=== PATIENT | female | born 1965 | race Caucasian/White ===

== ENCOUNTER 2016-04-02 16:15 | Emergency (ER) | payer OTHER ==
[~2016-04-02] VITALS: Ht 165.1 cm; Wt 77.3 kg
[~2016-04-02 16:15] MED LIST: ASPI-825 PO; ATOR10TA84 PO; GLIPIZIDE; GLUCOPHAGE; HCTZ; INSU100C3 SQ; LANTUS INSULIN; LISI-660 PO; METF500T4 PO; OMEP20 PO; SERT50TA12 PO
[2016-04-02 16:52] LABS: GLUCOSE,POINT OF CARE 367 MG/DL (70-110)
[2016-04-02] MEDS ORDERED: DIPHENOXYLATE/ATROP 2.5-0.025 MG TABLET PO ONE (18:30)
[2016-04-02] MEDS ORDERED: INSULIN REGULAR, HUMAN 100 UNITS/ML IVP ONE (18:30)
[2016-04-02] MEDS ORDERED: SODIUM CHLORIDE 0.9% 1,000 ML IV ONE (18:30)
[2016-04-02] MEDS ORDERED: ONDANSETRON HCL 4 MG/2 ML VIAL IVP ONE (18:30)
[2016-04-02 18:37] LABS: BASOPHILS % (AUTO) 0.2 % (0.0-2.0); EOSINOPHILS % (AUTO) 0.6 % (1.0-6.0); HEMOGLOBIN 11.2 g/dL (12.0-16.0); LYMPHOCYTES # (AUTO) 4.4 K/uL (1.0-4.8); LYMPHOCYTES % (AUTO) 30.4 % (22.0-44.0); MEAN CORPUSCULAR HEMOGLOBIN 27.7 pg (26.0-34.0); MEAN CORPUSCULAR HGB CONC 32.9 G/dL (31.0-37.0); MEAN CORPUSCULAR VOLUME 84 fL (80-100); MONOCYTES # (AUTO) 1.2 K/uL (0.1-1.0); MONOCYTES % (AUTO) 8.1 % (2.0-9.0); NEUTROPHILS # (AUTO) 8.8 K/uL (1.8-7.7); NEUTROPHILS % (AUTO) 60.7 % (40.0-70.0); PLATELET COUNT (AUTO) 283 K/uL (150-450); RED BLOOD CELL COUNT(AUTO) 4.04 MIL/uL (4.00-5.20); WHITE BLOOD COUNT (AUTO) 14.5 K/uL (4.5-11.0)
[2016-04-02 18:42] LABS: CALCIUM, TOTAL 9.3 mg/dL (8.8-10.5); CREATININE 1.12 mg/dL (0.60-1.30); POTASSIUM 3.5 mmol/L (3.5-5.1)
[2016-04-02 18:48] LABS: ALBUMIN 2.7 g/dL (3.4-5.0); BILIRUBIN,TOTAL 0.1 mg/dL (0.1-1.0); TOTAL PROTEIN, SERUM 7.4 g/dL (6.4-8.2)
[2016-04-02 19:15] VITALS: BP 137/67
[2016-04-02 20:06] LABS: GLUCOSE,POINT OF CARE 268 MG/DL (70-110)
== END 2016-04-02 21:05 | disposition home or self-care (01) ==
LOC: EMS 16:17
DX: K52.9 Noninfective gastroenteritis and colitis, unspecified (principal); E11.65 Type 2 diabetes mellitus with hyperglycemia; I10 Essential (primary) hypertension; Z79.4 Long term (current) use of insulin; Z79.82 Long term (current) use of aspirin
CPT/HCPCS: 36415; 80053; 82962; 85025; 96361; 96374; 96375; 99285; J1815; J2405; J7030

== ENCOUNTER 2016-06-07 19:14 | Emergency (ER) | payer OTHER | END 2016-06-07 20:30 | disposition left against medical advice (07) | LOC: EMS 19:18 | DX: J45.909 Unspecified asthma, uncomplicated (principal); Z53.21 Procedure and treatment not carried out due to patient leaving prior to being seen by health care provider ==

== ENCOUNTER 2016-11-03 21:30 | Emergency (ER) | payer OTHER ==
[~2016-11-03] VITALS: Ht 165.1 cm; Wt 122.3 kg
[2016-11-03 21:57] LABS: GLUCOSE,POINT OF CARE 331 MG/DL (70-110)
[2016-11-03] MEDS ORDERED: GLIP5 PO (22:00)
[2016-11-03] MEDS ORDERED: ALBU8HFA IH (22:00)
[2016-11-03] MEDS ORDERED: INSLAN SQ (22:00)
[2016-11-03] MEDS ORDERED: INSNOV SQ (22:00)
[2016-11-03 22:21] LABS: BASOPHILS % (AUTO) 0.1 % (0.0-2.0); EOSINOPHILS % (AUTO) 0.9 % (1.0-6.0); HEMOGLOBIN 11.3 g/dL (12.0-16.0); LYMPHOCYTES # (AUTO) 3.9 K/uL (1.0-4.8); LYMPHOCYTES % (AUTO) 28.3 % (22.0-44.0); MEAN CORPUSCULAR HEMOGLOBIN 26.4 pg (26.0-34.0); MEAN CORPUSCULAR HGB CONC 32.2 G/dL (31.0-37.0); MEAN CORPUSCULAR VOLUME 82 fL (80-100); MONOCYTES # (AUTO) 0.8 K/uL (0.1-1.0); MONOCYTES % (AUTO) 5.9 % (2.0-9.0); NEUTROPHILS # (AUTO) 8.9 K/uL (1.8-7.7); NEUTROPHILS % (AUTO) 64.8 % (40.0-70.0); PLATELET COUNT (AUTO) 291 K/uL (150-450); RED BLOOD CELL COUNT(AUTO) 4.27 MIL/uL (4.00-5.20); RED CELL DISTRIBUTION WIDTH 15.7 % (11.5-14.5); WHITE BLOOD COUNT (AUTO) 13.7 K/uL (4.5-11.0)
[2016-11-03 22:26] LABS: CALCIUM, TOTAL 9.1 mg/dL (8.8-10.5); CREATININE 1.15 mg/dL (0.60-1.30); POTASSIUM 3.5 mmol/L (3.5-5.1)
[2016-11-03 22:29] LABS: ALBUMIN 2.6 g/dL (3.4-5.0); BILIRUBIN,TOTAL 0.3 mg/dL (0.1-1.0); TOTAL PROTEIN, SERUM 7.1 g/dL (6.4-8.2)
[2016-11-03 23:57] LABS: APPEARANCE,URINE CLEAR (CLEAR); PH,URINE 5.5 (5.0-8.0); PROTEIN,URINE SEE CONFIRM (NEGATIVE)
[2016-11-03 23:58] LABS: GLUCOSE, URINE (UA) 100 mg/dL (NEGATIVE); KETONES,URINE NEGATIVE (NEGATIVE); LEUKOCYTE ESTERASE ,URINE TRACE (NEGATIVE); OCCULT BLOOD,URINE SMALL (NEGATIVE)
[2016-11-04 00:12] LABS: SULFOSALICYLIC ACID,URINE 1+ (Negative)
[2016-11-04 00:13] LABS: SQUAMOUS EPITHELIAL CELL,UR Rare /LPF (None Seen); WBC,URINE 0-2 /HPF (0-5)
[2016-11-04 00:28] VITALS: BP 114/66
== END 2016-11-04 00:47 | disposition home or self-care (01) ==
LOC: EMS 21:34
DX: R07.89 Other chest pain (principal); R30.0 Dysuria; E11.9 Type 2 diabetes mellitus without complications; I10 Essential (primary) hypertension; Z79.4 Long term (current) use of insulin; Z79.82 Long term (current) use of aspirin
CPT/HCPCS: 51701; 82962; 93005; 99285